=== PATIENT | female | born 1990 | race Caucasian/White ===

== ENCOUNTER 2017-06-17 10:12 | Inpatient (IN) | payer OTHER ==
[~2017-06-17] VITALS: Ht 162.6 cm; Wt 91.6 kg
[~2017-06-17 10:12] MED LIST: Morphine PF 1 mg/mL 10 mL Inj ONE; [UNRECOGNIZED DRUG - CODE] PO
[2017-06-17] MEDS ORDERED: Lactated Ringer's 1,000 ML IV SCH ×3 (11:50→20:10)
[2017-06-17 13:23] LABS: APPEARANCE,URINE HAZY (CLEAR,HAZY); COLOR,URINE STRAW (YELLOW); OCCULT BLOOD,URINE NEGATIVE (NEGATIVE); UROBILINOGEN,URINE NORMAL (NORMAL)
[2017-06-17] MEDS ORDERED: Oxytocin 10 Unit/mL Inj IM PRN ×2 (16:10→20:10)
[2017-06-17] MEDS ORDERED: CeFAZolin Inj 2 GM in IV Premix 1 EACH IV SCH (16:10)
[2017-06-17] MEDS ORDERED: Methylergonovine 0.2 mg/mL Inj IM PRN ×2 (16:10→20:10)
[2017-06-17] MEDS ORDERED: Sodium Citrate-Citric Acid 15 mL Solution PO SCH (16:10)
[2017-06-17] MEDS ORDERED: Hemorrhage Kit, Post Partum XX ONE ×2 (16:10→20:10)
[2017-06-17] MEDS ORDERED: Carboprost 250 mCg/mL Inj IM PRN ×2 (16:10→20:10)
[2017-06-17] MEDS ORDERED: HYDROmorphone 1 mg/mL Inj IVPUSH PRN (17:15)
[2017-06-17] MEDS ORDERED: EPHEDrine Sulfate 50 mg/mL Inj IVPUSH PRN (17:15)
[2017-06-17] MEDS ORDERED: Atropine 0.4 mg/mL Inj IV PRN (17:15)
[2017-06-17] MEDS ORDERED: fentaNYL-PF 50 mCg/mL 2 mL Inj IVPUSH PRN (17:15)
[2017-06-17] MEDS ORDERED: MetoCLOpramide 5 mg/mL 2 mL Inj IVPUSH PRN (17:15)
[2017-06-17] MEDS ORDERED: Phenylephrine/NS-PF 100 mCg/mL 5 mL Syringe IVPUSH PRN (17:15)
[2017-06-17] MEDS ORDERED: Ondansetron 2 mg/mL 2 mL Inj IVPUSH PRN (17:15)
[2017-06-17] MEDS ORDERED: Dexamethasone 4 mg/mL Inj IVPUSH PRN (17:15)
[2017-06-17] MEDS ORDERED: Lactated Ringer's 1,000 ML IV PRN (17:15)
[2017-06-17] MEDS ORDERED: Morphine PF 1 mg/mL 10 mL Inj EPIDURAL ONE (17:15)
--- NOTE | 2017-06-17 17:15 | PCM.HPANE ---
Patient Data Surgeon Admitting Provider:Rajiv Yuen MD Attending Provider:Rajiv Yuen MD Primary Care Physician:Rajiv Yuen MD Other Provider:Joselyn Morris Anesthesia Reason for Visit NST NST Ht/WT & BMI Body Mass Index Allergies Coded Allergies: No Known Allergies (Unverified Allergy, Unknown, 09/16/15) Past Anesthesia History Anesthesia History: Denies:: Abnormal Airway, Anesthesia Reactions, Difficult Intubation, Fam Anesthesia Reaction, Fam Malignant Hypertherm, Malignant Hyperthermia Diabetes History Hx Diabetes?: No Medications Hypertension Medication: No Home Meds Incl Beta Umesh: No Reported Medications Zonisamide (Zonegran)100 Mg Eac228 Mg PO BID 10/12/12 History History of ENT Problems?: No HEENT History: Denies:: Abnormal Airway Cataracts Difficult Intubation Dysphagia Glaucoma Hearing Problem Sinus Problem TMJ Denture Type: None Teeth Condition: Within Normal Limits Hx of Heart Problems?: No Cardiovascular History: Denies:: Congestive Heart Failure Hypertension Hx of Respiratory Problem?: No Respiratory History: Denies:: Asthma COPD Chest Surgery Cough Dyspnea Emphysema Hemoptysis Oxygen Administration Pneumonia Pulmonary Embolism Tuberculosis Use of C-PAP Machine Use of Inhalers / NEBS Hx Neurologic Problems?: Yes Neurological History: Positive for:: Seizures Hx of GI Problems?: Yes Gastrointestinal History: Positive for:: Heartburn Hx of Problems?: No Female Hx: Positive for:: Currently Hx Musculoskeletal Problems?: No Hx Surgeries?: Yes (c/s) Hx Diabetes: No Hx Alcohol Use: Yes (social)Hx Substance Use: No Smoking Status: Never Smoker Have You Smoked inLast 12 mo: No Stop/Bang Treated for Sleep Apnea?: No Do You Have a CPAP Machine?: No NATY Risk Assessment: Low Risk, <3 Yes Risk Assessment Category Category 1A: Patient has history of documented sleep apnea, and HAS NOT received any narcotic, sedative or anesthesia administration during this stay. Category 1B: Patient has history of documented sleep apnea, and HAS received any narcotic , sedative or anesthesia administration during this stay Category 2: Patient has SUSPECTED Obstructive Sleep Apnea, and HAS received any narcotic , sedative or anesthesia administration during this stay. Category 3: Patient has SUSPECTED Obstructive Sleep Apnea and HAS NOT received narcotic, sedative or anesthesia administration during this stay. Category 4: Outpatient in Procedural Areas with known sleep apnea or who screen positive for High Risk via the STOP/BANG questionnaire. Exam Exam Vital Signs Vital Signs Date Time Temp Pulse Resp B/P Pulse Ox O2 Delivery O2 Flow Rate FiO2 06/17/17 12:01 80 General Appearance: Oriented X3 HEENT/AIRWAY: MP 2 Lungs: Normal Air Movement Heart: Regular Rate/Rhythm Meds/Labs/Diagnostics Admission Meds Current Medications Terbutaline Sulfate (Brethine Inj) 0.25 mg OT ONCE SUBQ Last administered on t 12:01; Start 06/17/17 at 11:50; Stop 06/17/17 at 11:51; Status DC Labs Test 06/17/17 12:45 06/17/17 12:53 Urine Color Straw (YELLOW) Urine Appearance Hazy (CLEAR,HAZY) Urine pH 7.0 (5.0-8.0) Urine Specific [place] 1.005 (1.003-1.035) Urine Protein Negativemg/dL (NEG,TRACE) Urine Glucose (UA) Negativemg/dL (NEGATIVE) Urine Ketones Negativemg/dL (NEGATIVE) Urine Occult Blood Negative (NEGATIVE) Urine Nitrite Negative (NEGATIVE) Urine Bilirubin Negative (NEGATIVE) Urine Urobilinogen Normalmg/dL (NORMAL) Urine Leukocyte Esterase Small (NEGATIVE) Urine RBC 0-2/hpf (0-2) Urine WBC 0-5/hpf (0-5) Urine Epithelial Cells Occasional/hpf (NONE-MOD) Urine Crystals None seen (NONE SEEN) Urine Bacteria None/hpf (NONE-FEW) Urine Hyaline Casts None/lpf (NONE) Urine Granular Casts None seen (NONE SEEN) Urine Waxy Casts None seen (NONE SEEN) Urine Red Blood Cell Casts None seen (NONE SEEN) Urine White Blood Cell Casts None seen (NONE SEEN) Urine Mucus None seen (None Seen) Urine Trichomonas None seen (NONE SEEN) Urine Yeast None (NONE SEEN) Urinalysis Comment None Urine Culture Reflexed Indicated White Blood Count 8.8th/mm3 (3.8-10.1) Red Blood Count 4.15mil/mm3 (3.90-5.20) Hemoglobin 13.3g/dL (12.0-15.6) Hematocrit 39.0% (35.0-46.0) Mean Corpuscular Volume 94.0fL (81-100) Mean Corpuscular Hemoglobin 32.0pg (27.0-35.0) Mean Corpuscular Hemoglobin Concent 34.1% (32.0-37.0) Red Cell Distribution Width 12.8% (12.3-15.4) Platelet Count 204bil/L (150-400) Hematology Comments Urine Random Creatinine 11mg/dL (16-392) Urine Random Total Protein < 4mg/dL (0-15) Urine Protein/Creatinine Ratio < 0.36 (0-200) Blood Urea Nitrogen 6mg/dL (6-20) Creatinine 0.68mg/dL (0.57-1.00) Uric Acid 2.1mg/dL (2.6-7.2) Aspartate Amino Transf (AST/SGOT) 14U/L (0-50) Alanine Aminotransferase (ALT/SGPT) 17U/L (0-32) Plan Impression Patient chart reviewed, patient interviewed and anesthestic plan with risks, benefits, and alternatives discussed, and informed consent obtained. ASA Physical Status: ASA3 Severe Disease Anesthetic Plan: SAB Bene/Risks/Altern/Consents: Yes HP Complete Prior to Induction: Yes Shahbaz Vargas MD Jun 17, 2017 17:15
[2017-06-17] MEDS ORDERED: Ondansetron 2 mg/mL 2 mL Inj ONE (18:18)
[2017-06-17] MEDS ORDERED: Morphine PF 1 mg/mL 10 mL Inj ONE (18:18)
[2017-06-17] MEDS ORDERED: Propofol 10,000 mCg/mL 20 mL Inj ONE (18:18)
[2017-06-17] MEDS ORDERED: Bupivacaine-MPF 0.75% 30 mL Inj ONE (18:18)
[2017-06-17] MEDS ORDERED: MetoCLOpramide 5 mg/mL 2 mL Inj ONE (18:18)
[2017-06-17] MEDS ORDERED: Oxytocin 10 Unit/mL Inj ONE (18:18)
[2017-06-17] MEDS ORDERED: Phenylephrine/NS 100 mCg/mL 10 mL Syringe IVPUSH ONE (18:18)
[2017-06-17] MEDS ORDERED: Dexamethasone 4 mg/mL Inj ONE (18:18)
[2017-06-17] MEDS ORDERED: Influenza (Adult) Vaccine 0.5 mL Syringe IM ONE (20:10)
[2017-06-17] MEDS ORDERED: TdaP Vaccine 0.5 mL Inj IM ONE (20:10)
[2017-06-17] MEDS ORDERED: Measles-Mumps-Rubella Vaccine 0.5 mL Inj SUBQ ONE (20:10)
[2017-06-17] MEDS ORDERED: LANOlin HPA 7 Gm Ointment TOPICAL PRN (20:10)
[2017-06-17] MEDS ORDERED: Sodium Chloride LOK Flush 10 mL Syringe IVFLUSH PRN (20:10)
[2017-06-17] MEDS ORDERED: Oxytocin 30 Units/500 mL LR 30 UNITS in IV Premix 1 EACH IV PRN (20:10)
[2017-06-17] MEDS: Acetaminophen IV 1,000 MG in IV Premix 1 EACH IV PRN (21:04)
[2017-06-18] MEDS ORDERED: CeFAZolin Inj 2 GM in IV Premix 1 EACH IV SCH (00:30)
[2017-06-18] MEDS ORDERED: CeFAZolin Inj 1 GM in IV Premix 1 EACH IV SCH (00:30)
[2017-06-18] MEDS: Acetaminophen IV 1,000 MG in IV Premix 1 EACH IV PRN (04:19)
[2017-06-18 06:31] LABS: Mean Corpuscular Hemoglobin 32.4 pg (27.0-35.0); Mean Corpuscular Volume 93.1 fL (81-100)
[2017-06-18] MEDS: oxyCODONE-Acetamin 5-325 mg Tablet PO PRN ×4 (10:40→22:52)
[2017-06-18] MEDS: hydrOXYzine Pamoate 25 mg Capsule PO PRN ×2 (12:24→22:54)
[2017-06-19] MEDS: oxyCODONE-Acetamin 5-325 mg Tablet PO PRN ×4 (03:21→19:43)
--- NOTE | 2017-06-19 07:00 | HP ---
[address] [address] HISTORY AND PHYSICAL PATIENT: LEANNA PRYOR : 1990 MR#: [id number] ADMIT: 06/17/2017 JOB ID: [id number] DATE: 06/17/2017, 1600 hours. HISTORY: The patient has been followed prenatally at [facility], see record for details. She has reached 36 weeks of gestation and has been having some contractions on and off recently. However, this afternoon, contractions returned and then improved after subcutaneous terbutaline dose before returning once again. Cervical change was also documented in the latent phase of labor, and thus decision was made to proceed with section at 36 weeks of gestation. She had a scheduled repeat planned but her last baby came early as well and thus this was not currently surprising, particularly in light of suspected uterine anomaly as identified at time of last with poor lower uterine segment development, low position of the ovaries and tubes on the uterus, etc. The patient has understood risks of surgery, which include bleeding, infection, injury to the urinary tract and bowel, anesthetic risks, etc. No guarantees may be stated or implied, and patient has understood risks and signed informed consent for surgery. All questions answered. In summary, then, patient has reached 36 weeks of gestation and she has gone into early labor, cervix has been changing at 36 weeks of gestation, and thus we are proceeding with repeat section. PHYSICAL EXAMINATION: Blood pressures have been intermittently elevated, consistent with -induced hypertension. Preeclampsia has not been suspected. See many readings on the day of admission. Neck: No thyromegaly. Lungs: Auscultation and percussion. Heart: Regular in rate and rhythm. Abdomen: Fundal height consistent with 36 weeks, positive heartbeat. DIAGNOSTIC DATA: Preeclampsia lab work and CBC with platelets, normal. IMPRESSION: 1. A 36 week . 2. Early labor in the latent phase, progressive cervical change. 3. -induced hypertension. 4. Suspected small for gestational age, tracked sonographically per the [facility]'s perinatologist, last EFW in the 16th percentile. Potentially related to Zonegran use and also perhaps -induced hypertension. 5. Seizure disorder, using Zonegran. 6. Suspected uterine anomaly, with very poor lower uterine segment development and unusual position of the ovaries and tubes on the uterus, all as noted at time of last . 7. Reproductive history--prior , see reproductive history form for details. 8. See history form for additional details regarding obstetric gynecologic and medical conditions. PLAN: The patient will be admitted to [facility] on June 17, 2017, on which day she will undergo repeat section as patient has entered labor at 36 weeks along.
--- NOTE | 2017-06-19 16:19 | PCM.DIOB ---
Obstetrical Disch Instruction Dates of Hospitalization Date of Hospital Admission Jun 17, 2017 at 15:30 Providers Admitting Physician: Rajiv Yuen MD Primary Care Physician: Rajiv Yuen MD Attending Physician: Rajiv Yuen MD Discharge Diagnosis Problems: (1) Onset Date: 09/15/2015 Status: Acute ICD Code: Z33.1 (2) induced hypertension, delivered, current hospitalization Onset Date: 09/16/2015 Status: Acute ICD Code: O13.9 Diet Discharge Diet: No restrictions Activity Discharge Activity-General: Pelvic Rest for 6 weeks, No lifting >10 pounds for 4-6 weeks Dressing and Incisional Care Hygiene: May shower, DO NOT soak incision under water Follow Up Plan Follow-up appointment: Weeks (Followup in 2 and 6 weeks for / postoperative checkups at [facility], please call this week to schedule.) Call your provider for: Fever or Chills, Shortness of breath, Heavy vaginal bleeding, Red painful breasts Rajiv Yuen MD Jun 19, 2017 16:19
[2017-06-19] MEDS ORDERED: IBUP-1827 PO (16:21)
[2017-06-19] MEDS ORDERED: DOCU-41 PO (16:21)
[2017-06-19] MEDS ORDERED: OXYC1TAB24 PO (16:21)
--- NOTE | 2017-06-19 20:15 | OP ---
[address] [address] OPERATIVE REPORT PATIENT: LEANNA PRYOR : 1990 MR#: [id number] ADMIT: 06/17/2017 JOB ID: [id number] DATE OF SURGERY: 06/18/2017 SURGEON: Rajiv Yuen MD SAND CLEANING MACHINE OPERATOR: Freddie Roldan MD ANESTHESIA: Spinal. PREOPERATIVE DIAGNOSIS(ES): 1. A 36-week . 2. Early labor. 3. -induced hypertension. 4. Small for gestational age for serial ultrasounds during . 5. Zonegran use for seizures. 6. Suspected uterine anomaly in the setting of extremely narrow lower uterine segment and somewhat displaced ovaries (more caudally placed on the uterus than typical, findings as noted at time of first ). 7. Reproductive history -- previous section. POSTOPERATIVE DIAGNOSIS(ES): 1. A 36-week . 2. Early labor. 3. -induced hypertension. 4. Small for gestational age for serial ultrasounds during . 5. Zonegran use for seizures. 6. Suspected uterine anomaly in the setting of extremely narrow lower uterine segment and somewhat displaced ovaries (more caudally placed on uterus than typical, findings as noted at time of first ). 7. Reproductive history -- previous section. 8. Absolutely severe adhesion disease. PROCEDURES PERFORMED: 1. Repeat low transverse section. 2. Adhesiolysis. 3. Scar revision. INDICATIONS FOR SURGERY: This patient went into spontaneous labor and cervix was changing during the late phase. At 36 week gestation, aggressive tocolysis was not indicated and thus decision was made to perform repeat section as opposed to trying to stop labor. Also, labile, . section is indicated on the basis of suspected uterine anomaly as well as for/unsuccessful labor experience with small baby last . The patient understood risks of surgery, and also benefits, and she signed informed consent for surgery. FINDINGS AT SURGERY: Fetus was in vertex presentation. Amniotic fluid was clear. Baby was active and crying and vigorous on the operative field. Note that ovaries and tubes were normal in general, although with some adhesions between ovary and distal fallopian tubes. Ovaries , and were more caudal than typical, and potentially for tubal origin as well. The lower uterine segment was also very narrow as was noted with last delivery. Note that lower uterine segment was somewhat scarred. There were very, very significant adhesions from the skin all way down to the lower uterine segment. The skin scar was retracted inward especially on the left side and scarring was prominent throughout the subcutaneous tissues. Fascial layer was . Adhesions were found in the rectus muscles to the fascia, and the rectus muscles definitely had significant scarring between them. Upon entrance to the peritoneal cavity, there was scarring noted between the anterior abdominal wall, peritoneum and the uterine fundus, and also down to the lower uterine segment as well as to the cornual areas. The bladder was also very densely adherent to the lower uterine segment cervix. At procedure's close, all adhesions were lysed, involving the uterus and bladder and anterior abdominal wall. Urine was clear. There was no bleeding occurring anywhere internally. Uterine incision had been closed. Uterus was now remaining well contracted. It certainly is anticipated that mother and baby will do very well during the /postop timeframe. We would anticipate or many of these adhesions to re-form, although we did use surgical techniques and also Interceed to try to reduce adhesion re-formation, particularly in the lower uterine segment and bladder region, and skin and subcutaneous scar region was excised to get a fresh start at healing. PROCEDURE IN DETAIL: The patient placed in supine position on the operating table after activation of spinal anesthesia. She was then repositioned in a left lateral tilt position and then Lopez catheter was placed. Abdomen was then prepped and draped in the usual sterile manner and appropriate time-out was taken after checking anesthesia level. was then brought into the room and procedure was initiated. Pfannenstiel incision was made on either side of the old surgical scar involving the skin and subcutaneous tissues which were then excised. Fascial incision was then made with a knife and carried through the rectus muscles which were then from the overlying fascia using blunt and sharp dissection plus cautery. Rectus muscles were then in midline. Peritoneal cavity was entered with immediate encountering of significant scarring. Extensive adhesiolysis was required broadly, and most significantly involving the bladder region. Appropriate planes were tediously dissected and then the lower uterine segment could be fully exposed. Incision was then made in the lower uterine segment and bandage scissors were utilized to extend the incision in a curvilinear direction upwards on each side, just up into the uterine fundus bilaterally as happened with first as well out of necessity in light of the narrow lower uterine segment. The amniotic sac was then ruptured and the head was brought through the incision followed by the shoulders, body and extremities. Baby was active and crying and vigorous on the operative field. Umbilical cord was clamped and cut and the was taken to the warmer. Blood was obtained for routine studies. Placenta with membranes were expelled. Uterine cavity was then gauze curettaged and uterine incision was then closed in a running, locking manner using #1 chromic suture. This effected complete hemostasis. Ovaries and tubes were inspected with findings noted above, and the posterior cul-de-sac area was then irrigated and suctioned of blood and clots and fluid. Uterus contracted reasonably well, with massage plus intravenous Pitocin infusion, primarily. Uterus was then returned to the abdominal cavity and gutter areas were cleared of blood and clots fluid and lower uterine segment was inspected and there were no bleeding sites nor were there any bleeding sites in the bladder region. Urine was clear. Instrument, needle and sponge counts were all found to be correct. Rectus muscles then drawn together across the midline using interrupted stitches of #1 chromic suture. Subfascial plane was inspected and light cautery applied where needed. Fascial layer was then closed in a running manner using #1 PDS, with great care given to bury the knots on each side. Subcutaneous tissues were then extensively irrigated and cautery applied where needed. A 3-0 Vicryl suture interrupted vertical mattress stitches were then placed. This effected complete hemostasis and to close space. Skin incision was then closed with joon and pressure dressing was applied. The procedure was thus complete. ESTIMATED BLOOD LOSS: 500 cc. COMPLICATIONS: None. PROGNOSIS: Good for surgical recovery. Note that we would anticipate adhesions to reform somewhat, although surgical techniques were accomplished in an effort to avoid as much recurrence as possible. Also, two Interceed sheaths were placed over the lower uterine segment as well as over the anterior uterine fundus where there had been incision as well as scarring respectively. This will hopefully also help reduce risk of significant scarring that would make more challenging future repeat section. Note that the tedious and lengthy adhesiolysis was definitely a challenging component to this case, and probably doubled typical duration of .
[2017-06-20] MEDS: oxyCODONE-Acetamin 5-325 mg Tablet PO PRN ×4 (00:13→15:02)
[2017-06-20 06:52] LABS: Mean Corpuscular Hemoglobin 31.8 pg (27.0-35.0); Mean Corpuscular Volume 95.6 fL (81-100)
[2017-06-20] MEDS ORDERED: LABE100T4 PO (17:35)
[2017-06-20 19:06] VITALS: BP 144/85; PULSE 68; RESP 16
--- NOTE | 2017-06-21 20:01 | DIS ---
[address] [address] DISCHARGE SUMMARY PATIENT: LEANNA PRYOR : 1990 MR#: [id number] ADMIT: 06/17/2017 JOB ID: [id number] DIS: 06/20/2017 DISCHARGE DIAGNOSES: 1. A 36-week , delivered. 2. Spontaneous labor. 3. -induced hypertension. 4. Small for gestational age fetus per serial ultrasonography at the [facility], perhaps related to Zonegran use. 5. Seizure disorder, using Zonegran. 6. Suspected uterine anomaly. 7. Status post repeat section. 8. Mild anemia. PROCEDURES PERFORMED DURING HOSPITALIZATION: 1. Repeat section. 2. Spinal anesthesia. HOSPITAL COURSE: The patient was admitted to [facility] on June 17, 2017, in early labor, with cervix changing in effacement, dilatation, and so forth over time. Decision was thus made to proceed with repeat section as planned per patient, yet to do early. This was accomplished and the patient in general did well during the /postoperative timeframe from a pain standpoint, ambulating, voiding, with reasonable bleeding, without leg pain or shortness of breath, without incisional problem, and handling baby well. Note, however, that although she remained afebrile, she did have blood pressure issues at times, consistent with the -induced hypertension. She ultimately was placed on labetalol 100 mg p.o. b.i.d. with some stabilization occurring and it was felt that she could be discharged on the 3rd postoperative/ day now that blood pressure lability had improved. DISCHARGE PROGRAM: The patient will call p.r.n., yet otherwise she will follow up at two weeks for incision check and at six weeks for final postoperative/ checkup at [facility]. She will observe pelvic rest and not do any heavy lifting for six weeks. DISCHARGE MEDICATIONS: Include docusate sodium, ibuprofen, labetalol, and oxycodone/acetaminophen 5/325, prescriptions written. vitamin will also be continued and patient has supply at home. It is anticipated that labetalol will be used for a time and then will be able to be weaned off. Fortunately there has been no specific evidence for preeclampsia.
--- NOTE | 2017-06-23 10:57 | PROG NOTE ---
[address] [address] PROGRESS NOTE PATIENT: LEANNA PRYOR : 1990 MR#: [id number] ADMIT: 06/17/2017 JOB ID: [id number] DATE: 06/18/2017 SUBJECTIVE: The patient underwent repeat low transverse section on June 17, 2017 in early labor, , gestational age at 36 weeks. OBJECTIVE: Postop/ timeframe, patient is doing well on the first day following surgery with mildly elevated blood pressures at times, although no alarming readings, without complaint of any significant headache or visual change or other such problem, ambulating and voiding, with reasonable bleeding and pain management, without incisional problem, and without leg pain or shortness of breath. She was handling baby well. Note that postoperative/ hemoglobin was 10.4. PLAN: Continue postoperative/ care. We will continue to track blood pressure closely as well as other parameters to be induced in the setting of -induced hypertension, preeclampsia not suspected.
--- NOTE | 2017-06-24 16:27 | PATH ---
SURGICAL PATHOLOGY Attending Physician:Rajiv Yuen M.D CASE STATUS: Signed Out PATIENT NAME: LEANNA PRYOR PID: [id number] : 1990 DATE COLLECTED:06/18/2017 00:00 SPECIMEN: Placenta CLINICAL HISTORY: SMALL FOR GESTATIONAL AGE, 36 WEEKS, MATERNAL TEMPERATURE 38, CURRY 1). PLACENTA FINAL DIAGNOSIS: Placenta, Delivery: Mancia placenta with: Three-vessel umbilical cord, negative for funisitis. membranes negative for chorioamnionitis. Placental disc (356 grams) with chorionic villi immature for gestational age. ICD10: Z37.0 GROSS DESCRIPTION: The specimen is received in formalin, labeled with the patient's name, and consists of an intact placenta which includes the placental disc (356 g, 17.2 x 15.0 x 2.2 cm), membranes and umbilical cord (length-16.2 cm, diameter-1.2 x 1.1 cm). The membranes are ruptured at the free edge of the placenta and are semitranslucent. The umbilical cord is attached 5.7 cm from the edge of the placenta and contains 3 vessels. The surface is smooth and shiny with no evidence of meconium identified. The maternal surface is dark maroon with normal cotyledon formation. The placental body is spongy with no nodules, masses, lesions, hematomas or infarcts identified. Section code: (A) edge of placenta with membranes, umbilical cord; (B-D) placenta, 3 full-thickness sections. 06/19/17 ICD-9 CODES: CPT CODES: 1: 65203 Electronically Signed Out Huan Watkins MD, Ph.D. [facility] Pathology [facility] [address], [place] [address] Technical component performed at [facility], [facility] [address], [place], [address]
== END 2017-06-20 20:08 | disposition home or self-care (01) | DRG 765 ==
LOC: FBCO 10:12 → FBC 15:30
PROVIDERS: ADMIT Obstetrics & Gynecology; ATTEND Obstetrics & Gynecology
PROC: 10D00Z1 Extraction of Products of Conception, Low, Open Approach (ICD-10-PCS; principal; 2017-06-18)
PROC: 0UN90ZZ Release Uterus, Open Approach (ICD-10-PCS; 2017-06-18)
DX: O34.211 Maternal care for low transverse scar from previous cesarean delivery (principal); O60.14X0 Preterm labor third trimester with preterm delivery third trimester, not applicable or unspecified; O99.354 Diseases of the nervous system complicating childbirth; O13.4 Gestational [pregnancy-induced] hypertension without significant proteinuria, complicating childbirth; Z3A.36 36 weeks gestation of pregnancy; Z37.0 Single live birth; N73.6 Female pelvic peritoneal adhesions (postinfective); G40.909 Epilepsy, unspecified, not intractable, without status epilepticus; O34.593 Maternal care for other abnormalities of gravid uterus, third trimester